=== PATIENT | female | born 1985 | race African-American/Black ===

== ENCOUNTER 2017-04-04 13:40 | Emergency (ER) | payer SELFPAY ==
[~2017-04-04] VITALS: Ht 160 cm; Wt 120.0 kg
[2017-04-04] MEDS ORDERED: LEVOTHYROXIN50 MCG PO (13:56)
[2017-04-04] MEDS ORDERED: MOTRIN800 MG PO (14:12)
[2017-04-04 14:20] VITALS: BP 110/66
== END 2017-04-04 14:20 | disposition home or self-care (01) | DRG 558 ==
LOC: ED 13:40
DX: M67.431 Ganglion, right wrist (principal); M25.531 Pain in right wrist

== ENCOUNTER 2020-01-11 | Emergency (ER) | payer SELFPAY ==
[~2020-01-11] MED LIST: LEVOTHYROXIN50 MCG PO; MOTRIN800 MG PO
[2020-01-11] MEDS ORDERED: GABAPENTIN300 M2 PO (08:45)
[2020-01-11] MEDS ORDERED: MOTRIN800 MG PO (08:45)
== END 2020-01-11 11:02 | disposition home or self-care (01) | DRG 556 ==
DX: M79.605 Pain in left leg (principal); E66.9 Obesity, unspecified; E03.9 Hypothyroidism, unspecified

== ENCOUNTER 2020-04-18 11:35 | Inpatient (IN) | payer MEDICAID ==
[~2020-04-18] VITALS: Ht 160 cm; Wt 190.3 kg
[~2020-04-18 11:35] MED LIST changes: +GABAPENTIN300 M2 PO
--- NOTE | 2020-04-18 11:50 | NUR ---
IMMEDIATELY TO ROOM 10 VIA WC, PLACED ON STAFF RADIATION THERAPIST. NOTIFIED OF PT.
--- NOTE | 2020-04-18 12:20 | NUR ---
PT ASSESSED. SITTING ON STRETCHER, GOWN AND MONITORS IN PLACE. PT REPORTS SHORT OF BREATH WORSE SINCE LAST NIGHT. POSITIVE FOR COVID 19 VIRUS. PT AO X 3 SKIN PINK WARM AND DRY. BREATH SOUNDS DIMINISHED BILAT. NO CARDIAC COMPLAINTS AT THIS TIME
--- NOTE | 2020-04-18 13:45 | NUR ---
CENTRAL LINE PLACED BY DR COOL. PT TOLERATED PROCEDURE WELL.
--- NOTE | 2020-04-18 14:45 | NUR ---
ANTIBIOTIC INFUSING. PT RESTING ON STRETCHER AWAITING RESULTS
[2020-04-18 14:51] LABS: HEMATOCRIT 37.3 % (37.0-47.0); HEMOGLOBIN 11.2 g/dl (12.0-16.0); IMMATURE GRANULOCYTES 0.3 % (0.0-5.0); MEAN CELL VOLUME 75.8 fL CALC (80.0-100.0); MEAN CORPUSCULAR HGB 22.8 pG CALC (26.0-32.0); NEUT# 4.34 thou/uL (2.00-7.15); RED BLOOD COUNT 4.92 mill/uL (4.20-5.60); RED CELL DISTRI WIDTH 17.1 % (11.5-15.5)
--- NOTE | 2020-04-18 15:24 | NUR ---
PT CONTINUES WAITING LAB RESULTS
[2020-04-18 15:30] LABS: C-REACTIVE PROTEIN 0.9 mg/dL (0-0.9); LIPASE 79 u/l (23-300)
--- NOTE | 2020-04-18 15:50 | NUR ---
PT GIVEN SANDWICH AND COLA. REPOSITIONED FOR COMFORT
[2020-04-18 15:57] LABS: ALBUMIN 3.6 g/dL (3.2-5.0); ALKALINE PHOSPHATASE 73 u/l (38-126); ANION GAP 11 (6-22 (CALC)); BILIRUBIN, TOTAL 0.4 mg/dL (0.0-1.4); BUN 8 mg/dL (7-17); BUN/CREATININE RATIO 10 (12-20 (CALC)); CARBON DIOXIDE 25 mmol/l (22-30); CHLORIDE 103 mmol/l (95-108); CREATININE 0.8 mg/dL (0.5-1.0); GFR > 60 ML/MIN (>=60 (CALC)); GFR FOR AFR.AMER. > 60 ML/MIN (>=60 (CALC)); POTASSIUM 4.6 mmol/l (3.5-5.1); SGOT/AST 34 u/l (14-36); SODIUM 134 mmol/l (137-146); TOTAL PROTEIN 7.2 g/dL (6.3-8.2)
--- NOTE | 2020-04-18 16:07 | NUR ---
SBAR PRINTED TO FLOOR
--- NOTE | 2020-04-18 16:29 | NUR ---
REPORT GIVEN TO JEROMY MORALES ICU
--- NOTE | 2020-04-18 16:45 | NUR ---
PT TRANSPORTED TO ICU VIA STRETCHER. O2 IN PLACE
--- NOTE | 2020-04-18 16:45 | NUR ---
PT ADMITTED FROM ER VIA STRETCHER. PT AMBULATED TO BSC. ALERT AND ORIENTED X4, MOVES ALL EXTREMITIES. DENIES PAIN OR DISCOMFORT AT THIS TIME, WILL CONTINUE TO MONITOR.
--- NOTE | 2020-04-18 18:00 | NUR ---
PT DINNER AT BEDSIDE, DENIES PAIN OR DISCOMFORT AT THIS TIME, CALL LIGHT WITHIN REACH, WILL CONTINUE TO MONITOR.
--- NOTE | 2020-04-18 19:58 | NUR ---
REPORT FROM JEROMY MORALES. PT SITTING UP IN BED WATCHING TV. NO APPARENT DISTRESS NOTED. PT DENIES ANY PAIN OR SOB. 02 VIA HIGHFLOW NC @5L/M. TRIPLE LUMEN RIGHT IJ, FLUSHED EASILY WITH BLOOD RETURN NOTED IN ALL THREE LUMENS. PT REPORTS PRODUCTIVE COUGH WITH CLEAR/YELLOW THICK SPUTUM. DISCUSSED POC. PT VERBALIZED UNDERSTANDING. URINE SAMPLE COLLECTED AND SENT TO LAB ORDERED. FRESH ICE WATER AND CRACKERS PROVIDED UPON REQUEST. NO OTHER WANTS OR NEEDS. CALL LIGHT WITHIN REACH. WILL CONTINUE TO MONITOR.
[2020-04-18 20:20] VITALS: BP 125/67
--- NOTE | 2020-04-18 22:47 | NUR ---
PT RESTING IN BED. NO APPARENT DISTRESS NOTED. MAINTAINING 98% ON 5L/M VIA NC. PT DENIES ANY PAIN OR SOB. CELL PHONE PLACED ON PUBLIC RELATIONS ACCOUNT SUPERVISOR. CALL LIGHT WITHIN REACH. WILL CONTINUE TO MONITOR.
[2020-04-19 00:06] VITALS: BP 135/81
--- NOTE | 2020-04-19 02:14 | NUR ---
PT RESTING IN BED WITH EYES CLOSED. NO APPARENT DISTRESS NOTED. RESPIRATIONS EVEN AND UNLABORED. 02 @5L/M VIA NC. CALL LIGHT WITHIN REACH. WILL CONTINUE TO MONITOR.
[2020-04-19 04:32] VITALS: BP 140/89
--- NOTE | 2020-04-19 04:34 | NUR ---
PT RESTING IN BED. NO APPARENT DISTRESS NOTED. PT WAKES EASILY. DENIES ANY PAIN OR SOB. LABS OBTAINED FROM RIGHT TRIPLE LUMEN IJ PER PROTOCOL. PT DENIES ANY CURRENT WANTS OR NEEDS. CALL LIGHT WITHIN REACH. WILL CONTINUE TO MONITOR.
[2020-04-19 06:09] LABS: ANION GAP 12 (6-22 (CALC)); BUN 10 mg/dL (7-17); BUN/CREATININE RATIO 13 (12-20 (CALC)); CARBON DIOXIDE 29 mmol/l (22-30); CHLORIDE 101 mmol/l (95-108); CREATININE 0.7 mg/dL (0.5-1.0); GFR > 60 ML/MIN (>=60 (CALC)); GFR FOR AFR.AMER. > 60 ML/MIN (>=60 (CALC)); MAGNESIUM 2.1 mg/dL (1.6-2.3); POTASSIUM 4.7 mmol/l (3.5-5.1); SODIUM 137 mmol/l (137-146)
--- NOTE | 2020-04-19 06:45 | NUR ---
RECIEVED REPORT FROM VAN PHILIP. ASSUMED PT CARE.
--- NOTE | 2020-04-19 07:55 | NUR ---
PT RESTING IN BED, A&OX3, ABLE TO MAKE NEEDS KNOWN, PT DENIES CP OR DISTRESS, SR ON TELEMETRY, HR 86. LS CLEAR/DIMINISHED, PT WITH SHALLOW RESPIRATIONS, ENCOURAGED/EDUCATED WITH DEEP BREATHING EXERCISES. SA02@96% ON 5LPM HIGH FLOW. RIJ/TL/SL, FLUSHED WITHOUT DIFFICULTY, NO S/S OF INFILTRATION/INFECTION NOTED AT SITE. ABDOMEN SOFT, DISTENDED. NON-TENDER, BSX4 ACTIVE. LBM 5-27-20. CALL LIGHT IN REACH. WILL MONITOR.
--- NOTE | 2020-04-19 09:32 | NUR ---
DR. CURRIE AT BEDSIDE FOR ASSESSMENT AND TO DISCUSS PLAN OF CARE. NEW ORDERS RECIEVED.
[2020-04-19 10:27] VITALS: BP 114/59
--- NOTE | 2020-04-19 11:14 | NUR ---
PT ASSISTED TO BSC, TOLERATED WELL. PT CONTINUES ON 02@5LPM VIA NC/HF. THEN BACK TO BED. CALL LIGHT IN REACH. WILL MONITOR.
[2020-04-19 14:15] VITALS: BP 117/67
--- NOTE | 2020-04-19 16:00 | NUR ---
PT RESTING IN BED, RESPIRATION SHALLOW, INTERMITTENT COUGH, PT PRODUCING THICK YELLOW MUCOUS, COUGHING WORSE WITH EXERTION. PT AGAIN ENCOURAGED/EDUCATED ON DEEP BREATHING EXERCISES. PT VERBALIZED UNDERSTANDING. CALL LIGHT IN REACH. WILL MONITOR.
--- NOTE | 2020-04-19 19:00 | NUR ---
RECEIVED REPORT. PT TALKING ON CELL PHONE AND WATCHING TV. WET PRODUCTIVE COUGH NOTED. N/C AT THIS TIME
[2020-04-19 21:00] VITALS: BP 111/66
--- NOTE | 2020-04-19 21:00 | NUR ---
PT REPORTED SHE IS UNABLE TO CLEAN SELF AFTER URINATION OR BM AT HOME. HAD LARGE LOOSE BM WHILE PARTIAL BATH GIVEN. NURSE CLEANED PERINEAL AREA-TOLERATED WELL. AFTER, PT ON PHONE WITH SISTED AND REQUESTED A WIK-EXTERNAL FEMALE CATH PT IS INCONTINENT OF URINE WITH COUGHING. APPLIED PER REQUEST AND INSTRUCTIONS GIVEN
--- NOTE | 2020-04-19 23:00 | NUR ---
BEDRESTING. WATCHING TV. NO DISTRESS NOTED
--- NOTE | 2020-04-19 23:50 | NUR ---
BEDRESTING. RESP EVEN AND NONLABORED. O2 REMAINS IN USE. PERIODIC COUGH. N/C AT THIS TIME
--- NOTE | 2020-04-19 23:51 | NUR ---
BEDRESTING. RESP EVEN AND NONLABORED. PERIODIC COUGH NOTED. N/C VOICED
[2020-04-20] VITALS (8 sets, daily range): BP systolic 110–135; BP diastolic 56–75
--- NOTE | 2020-04-20 01:00 | NUR ---
TV OFF. LIGHTS OUT. BEDRESTING. EYES CLOSED
--- NOTE | 2020-04-20 02:00 | NUR ---
REQUESTED MEDICATION FOR GAS. AFTER CHECKING MAR, TYLANOL ORDERED PRN FOR PAIN 1-3. WENT TO ROOM TO OFFER TYLENOL, PT BEDRESTING WITH EYES CLOSED. NO DISTRESS NOTED AT THIS TIME
--- NOTE | 2020-04-20 02:58 | NUR ---
BEDRESTING. NO DISTRESS NOTED AT THIS TIME
--- NOTE | 2020-04-20 04:45 | NUR ---
BEDRESTING. RESP EVEN AND NONLABORED. CONTINUES ON O2 RX. EYES CLOSED.
--- NOTE | 2020-04-20 05:42 | NUR ---
C/O GAS PAIN THROUGH THE NIGHT. ASKED IF MD HUNT ORDER MEDICATION FOR GAS. HAD INITIAL BM AT EARLY PART OF SHIFT. NO OTHER BM. WIK (EXTERNAL CATH) REMAINS IN PLACE. TLCL RIGHT IJ IN PLACE AND HL. BLOOD DRAWN AND ALL LINES FLUSHED
--- NOTE | 2020-04-20 05:44 | NUR ---
PT REMAINS ON AIRBORNE PRECAUTIONS IN ROOM [address]ER IN [address] NICKIE CLOSED
[2020-04-20 05:50] LABS: HEMATOCRIT 36.5 % (37.0-47.0); HEMOGLOBIN 10.8 g/dl (12.0-16.0); IMMATURE GRANULOCYTES 0.2 % (0.0-5.0); MEAN CELL VOLUME 75.9 fL CALC (80.0-100.0); MEAN CORPUSCULAR HGB 22.5 pG CALC (26.0-32.0); MEAN CORPUSCULAR HGB CONC 29.6 g/dL CAL (32.0-36.0); NEUT# 6.25 thou/uL (2.00-7.15); RED BLOOD COUNT 4.81 mill/uL (4.20-5.60); RED CELL DISTRI WIDTH 17.1 % (11.5-15.5)
[2020-04-20 06:34] LABS: ANION GAP 9 (6-22 (CALC)); BUN 12 mg/dL (7-17); BUN/CREATININE RATIO 14 (12-20 (CALC)); CARBON DIOXIDE 29 mmol/l (22-30); CHLORIDE 100 mmol/l (95-108); CREATININE 0.8 mg/dL (0.5-1.0); GFR > 60 ML/MIN (>=60 (CALC)); GFR FOR AFR.AMER. > 60 ML/MIN (>=60 (CALC)); POTASSIUM 4.5 mmol/l (3.5-5.1); SODIUM 134 mmol/l (137-146)
[2020-04-20 06:41] LABS: C-REACTIVE PROTEIN 2.2 mg/dL (0-0.9)
--- NOTE | 2020-04-20 06:41 | NUR ---
BEDRESTING. REPORT GIVEN TO ONCOMING SHIFT.
--- NOTE | 2020-04-20 08:00 | NUR ---
pt resting in bed with eyes closed; easily aroused; assessment completed at this time; pt alert and oriented; denies pain; no n/v noted; resp even and unlabored; lungs coarse throughout; skin color wnl; o2 per nc at 5L with o2 sat at 97%; loose productive cough noted; hr reg; strong pulses; no edema noted; st on monitor; abd soft/ distended with bs present; pt admits to bm last night; pt admits to flatus; TLC saline locked to RIJ; no redness or edema noted at site; plan of care/ meds explained; call light within reach; will continue to monitor
--- NOTE | 2020-04-20 09:00 | NUR ---
Dr Singh present at bedside to assess pt and discuss plan of care
--- NOTE | 2020-04-20 10:16 | NUR ---
pt resting in bed with eyes closed; no apparent distress noted; resp even and unlabored; st on monitor; iv intact; call light within reach; will continue to monitor
--- NOTE | 2020-04-20 10:25 | NUR ---
meds explained and administered; temp 100.1; pt denies needs/ discomfort; iv intact; call light within reach; will continue to monitor
--- NOTE | 2020-04-20 12:11 | NUR ---
awake in bed eating lunch; no apparent distress noted; resp even and unlabored; o2 per nc; o2 sat 100%; iv intact and patent; no redness or edema noted at site; st on monitor; purewick intact; call light within reach; will continue to monitor
--- NOTE | 2020-04-20 14:04 | NUR ---
resting in bed with eyes closed; no apparent distress noted; st on monitor; iv intact; o2 per nc; call light within reach; will continue to monitor
--- NOTE | 2020-04-20 15:51 | NUR ---
awake in bed; no apparent distress noted; pt offers no complaints; iv intact; sr on monitor; purewick intact and patent; o2 per nc; no resp difficulty noted; pt inquiring about transfer to [facility]; pt informed if condition worsens, MD may want to transfer; no orders to transfer at this time; will continue to monitor
--- NOTE | 2020-04-20 16:25 | NUR ---
gretchen carey provided as per request
--- NOTE | 2020-04-20 18:11 | NUR ---
awake in bed; offers no complaints; o2 titrated to 4L NC; o2 sat maintained at 100%; pt admits to feeling better; central line dressing changed d/t lifting; purewick changed at this time; pt request salad; dietary notified; call light within reach
--- NOTE | 2020-04-20 20:00 | NUR ---
BEDRESTING. DOZING AND WATCHING TV. STATES SHE CANNOT EAT THE SALAD IT MAKES HER COUGH. CONTINUES TO DRINK PLENTY OF FLUIDS-TOLERATING WELL. STATES FEELS MUCH BETTER TODAY THAN YESTERDAY. O2 IS 1L/MIN LESS TODAY THAN YESTERDAY AND O2 SAT REMAINS 98-100%. REPORTS HAD FEVER THIS AFTERNOON BUT IT BROKE AND AFTER SHE FEELS LIKE A NEW PERSON. HAS PERIODIC PRODUCTIVE COUGH. PUREWICK REMAINS IN USE (PER PATIENT'S REQUEST). CONTINUES ON AIRBORNE PRECAUTIONS WITH AIR SCRUBBER IN ROOM. TLCL IN PLACE AND HL
--- NOTE | 2020-04-20 20:10 | NUR ---
Patient is screened for rehab needs and there appear to be no needs at this time. We will continue to screen through interdisciplinary rounds as needs may arise
--- NOTE | 2020-04-20 22:00 | NUR ---
BEDRESTING. DOZING AT INTERVALS. N/C AT THIS TIME
[2020-04-21] VITALS (9 sets, daily range): BP systolic 109–152; BP diastolic 55–86
--- NOTE | 2020-04-21 | NUR ---
UP TO BSC WHERE BED BATH GIVEN AND LINEN CHANGED-TOLERATED WELL. COUGHING WITH SLIGHT EXERTION
--- NOTE | 2020-04-21 02:00 | NUR ---
BEDRESTING. RESP EVEN AND NONLABORED. NO DISTRESS NOTED AT THIS TIME
--- NOTE | 2020-04-21 04:00 | NUR ---
BEDRESTING. EYES CLOSED. RESP EVEN AND NONLABORED. NO DISTRESS NOTED
--- NOTE | 2020-04-21 07:35 | NUR ---
pt resting in bed with eyes closed; easily aroused; no apparent distress noted; pt offers no complaints; assessment completed at this time; pt alert and oriented; denies pain/ discomfort; no n/v noted; resp even and unlabored; sob with exertion noted; lungs coarse; skin color wnl; o2 titrated from 4L to 3L; o2 sart maintained at 99%; cough noted; hr reg; pulses present; no edema noted; abd soft/ distended with bs present; no bm noted per insurance underwriter; purewick catheter intact with clear lily urine noted; TLC to RIJ flushed and patent; brisk bllod return from all lumens; dressing cdi; plan of care/ am meds explained; call light within reach; will continue to monitor
--- NOTE | 2020-04-21 08:00 | NUR ---
sr on monitor; no apparent distress noted; call light within reach
--- NOTE | 2020-04-21 09:14 | NUR ---
Dr Singh present at bedside to assess pt and discuss plan of care
--- NOTE | 2020-04-21 09:18 | NUR ---
am meds explained and administered; ot noted with menstrual cycle; pericare per staff; purewick remains intact; call light within reach; will continue to monitor
--- NOTE | 2020-04-21 10:12 | NUR ---
awake in bed; frequent harsh coughing noted; o2 per nc at 3L; sr on monitor; iv intact and patent; pt offers no complaints; call light within reach; will continue to monitor
--- NOTE | 2020-04-21 10:43 | NUR ---
pt assisted to bsc for bm; sob on exertion noted; o2 sat 96% on 3L NC; complete linen change for urinary incont; purewick replaced/ placed as per pt request; st on monitor; will continue to monitor
--- NOTE | 2020-04-21 12:00 | NUR ---
awake in bed eating lunch; no apparent distress noted; coughing noted; st on monitor; o2 per; purewick intact; call light within reach; will continue to monitor
--- NOTE | 2020-04-21 14:06 | NUR ---
resting in bed with eyes closed; easily aroused; offers no complaints; ice cream requested and provided; iv intact; st on monitor; purewick intact; o2 per nc; call light within reach; will continue to monitor
--- NOTE | 2020-04-21 15:31 | NUR ---
report called to med surg Derrick Leavitt RN
--- NOTE | 2020-04-21 15:50 | NUR ---
VERBAL ORDER RECEIVED FROM DR NEVAREZ TO TRANSFER TO [facility] WITHOUT TELEMETRY
--- NOTE | 2020-04-21 16:00 | NUR ---
pt awake in bed; no apparent distress noted; pt with complaints of purewick not working; fawad noted full; pt informed of pending transfer to med surg; will continue to monitor
--- NOTE | 2020-04-21 16:30 | NUR ---
pt assisted to side of bed; pericare per this video games storywriter; pt denies ability to perform pericare; pt admits to daughter helping her with pericare/ showering etc; iv intact; no redness or edema noted at site; sr on monitor; purewick removed for transfer; pt transferred to med surg [id number] via wc with portable o2 in stable condition; bedside update provided to ANDREW Pike; all belongings sent with pt
--- NOTE | 2020-04-21 16:35 | NUR ---
PT ARRIVED TO UNIT VIA WHEELCHAIR WITH ICU STAFF; ALERT AND ORIENTED AND IN STABLE CONDITION. C/O MILD LOWER ABDOMINAL DISCOMFORT. RESPIRATIONS EVEN AND UNLABORED ON OXYGEN 3L VIA NC. PT STOOD AND AMBULATED SHORT DISTANCE TO BED WITH STEADY GAIT. PURWIK CATHETER REPLACED AND CONNECTED TO CONTINOUS SUCTION. EMESIS BAG PROVIDED FOR SPUTUM. ORIENTED TO ROOM AND CALL LIGHT SYSTEM. PLAN OF CARE REVIEWED. PT ENCOURAGED TO VERBALIZE CONCERNS. STATES UNDERSTANDING. SAFETY MEASURES IN PLACE. CALL LIGHT WITHIN REACH.
--- NOTE | 2020-04-21 17:31 | NUR ---
PURWIK CATHETER NOT EFFECTIVE; PT ASSISTED TO BSC FOR VOID AND HYGIENE. EXTENSION OXYGEN TUBING ALLOWS PT TO REACH BSC; PT ENCOURAGED TO GET UP FOR BATHROOM WITH SUPERVISION.
--- NOTE | 2020-04-21 18:42 | NUR ---
TYLENOL GIVEN FOR LOWER ABDOMINAL CRAMPING WITH MENSRAL CYCLE. PT SITTING UP IN HIGH FOWLERS EATING DINNER AND TALKING ON CELL PHONE. CALL LIGHT WITHIN REACH. REMAINS ON AIRBORNE/CONTACT PRECAUTIONS FOR POSITIVE COVID RESULTS.
--- NOTE | 2020-04-21 20:10 | NUR ---
ASSESSMENT COMPLETED. PT. WITH SHALLOW BREATHING AND ENCOURAGED TO DEEP BREATHE. O2 INFUSING PER NC @3LITERS/MIN PER NC. PT. IS C/O MENSTRUAL CRAMPS AND WARM PACK PROVIDED. PURE WIC REAPPLIED PER PT'S REQUEST. ENCOURAGED TO GET OOB AND VOID IF SHE IS ABLE TO. RIJ TL INTACT AND SL. PT. WITH DRY COUGH NOTED. ENCOURAGED TO CALL FOR ANY NEEDS. CALL LIGHT IS IN REACH.
--- NOTE | 2020-04-21 23:20 | NUR ---
PT. O2 SPO2 100% ON 3LITERS/MIN; TITRATED DOWN TO 2LITERS/MIN AND SPO2 98%. PUREWIC CANSITER EMPTIED OF 600MLS OF BLOODY URINE PT. IS ON HER MENSTRUAL CYCLE. CLOTH PAD AND SAMPSON PAD CHANGED WELL. DENIES NEEDS. CALL LIGHT IS IN REACH. WILL CONTINUE TO MONITOR.
[2020-04-22 03:52] VITALS: BP 131/62
--- NOTE | 2020-04-22 03:55 | NUR ---
AM LABS OBTAINED; VSS; SPO2 99-100% ON 2LITERS/MIN AND O2 TITRATED DOWN TO 1LITER/MIN AND SPO2 REMAINS AT 99%. NO RESP. DISTRESS NOTED.
[2020-04-22 04:57] LABS: HEMATOCRIT 36.2 % (37.0-47.0); HEMOGLOBIN 10.9 g/dl (12.0-16.0); IMMATURE GRANULOCYTES 0.4 % (0.0-5.0); MEAN CELL VOLUME 75.7 fL CALC (80.0-100.0); MEAN CORPUSCULAR HGB 22.8 pG CALC (26.0-32.0); MEAN CORPUSCULAR HGB CONC 30.1 g/dL CAL (32.0-36.0); NEUT# 5.78 thou/uL (2.00-7.15); RED BLOOD COUNT 4.78 mill/uL (4.20-5.60)
--- NOTE | 2020-04-22 05:05 | NUR ---
SYNTHROID GIVEN AND FRESH WATER AND GATORADE PROVIDED. PUREWIC IN PLACE AND CHECKED PADS FOR INCONTINENCE AND NONE NOTED. CANISTER EMPTIED OF 500MLS OF BLOODY URINE. DENIES NEEDS. CALL LIGHT IS IN REACH. WILL CONTINUE TO MONITOR.
[2020-04-22 05:29] LABS: ALBUMIN 3.8 g/dL (3.2-5.0); ALKALINE PHOSPHATASE 67 u/l (38-126); ANION GAP 9 (6-22 (CALC)); BILIRUBIN, TOTAL 0.4 mg/dL (0.0-1.4); BUN 10 mg/dL (7-17); BUN/CREATININE RATIO 14 (12-20 (CALC)); C-REACTIVE PROTEIN 3.2 mg/dL (0-0.9); CARBON DIOXIDE 30 mmol/l (22-30); CHLORIDE 101 mmol/l (95-108); CREATININE 0.7 mg/dL (0.5-1.0); GFR > 60 ML/MIN (>=60 (CALC)); GFR FOR AFR.AMER. > 60 ML/MIN (>=60 (CALC)); POTASSIUM 4.5 mmol/l (3.5-5.1); SGOT/AST 38 u/l (14-36); SODIUM 135 mmol/l (137-146); TOTAL PROTEIN 7.2 g/dL (6.3-8.2)
[2020-04-22 07:56] VITALS: BP 112/59
--- NOTE | 2020-04-22 07:56 | NUR ---
REPORT RECEIVED FROM ANDREW MOE. PT RESTING IN BED SEMI FOWLERS; ALERT AND ORIENTED. C/O 10/10 LOWER ABDOMINAL CRAMPING RELATED TO MENSTRAL CYCLE; TYLENOL GIVEN AT THIS TIME. RESPIRATIONS EVEN AND UNLABORED ON OXYGEN 1L VIA NC; PT REPORT SOB AFTER COUGHING; PRODUCTIVE COUGH. TEMP 100.0. PURWIK CATHETER IN PLACE DRAINING BLODDY URINE DUE TO PERIOD. TRIPLE LUMEN RIGHT IJ APPEARS HEALHTY AND FLUSHES WITH GOOD BLOOD RETURN; DRESSING CDI AND DATED 04/20/20. FAN ON. AIRBORNE/CONTACT PRECAUTIONS. PLAN OF CARE REVIEWED. PT ENCOURAGED TO VERBALIZE CONCERNS. STATES UNDERSTANDING. SAFETY MEASURES IN PLACE. CALL LIGHT WITHIN REACH.
--- NOTE | 2020-04-22 09:00 | NUR ---
TYLENOL EFFECTIVE FOR CRAMPING AND TEMP DOWN TO 96.9. PT ATE MINIMAL BREAKFAST. DECLINED MILK PRODUCTS; WILL NOTIFY DIETARY. SET UP FOR ORAL CARE AND PT BRUSHED TEETH INDEPENDENTLY.
--- NOTE | 2020-04-22 10:02 | NUR ---
FIRST DOSE OF REMDESIVIR INFUSING INTO CENTRAL LINE; PT EDUCATED ON MEDICATION.
[2020-04-22 12:09] VITALS: BP 139/82
--- NOTE | 2020-04-22 13:00 | NUR ---
PT UP TO BSC FOR LOOSE MODERATE BOWEL MOVEMENT. ASSISTED BATH PROVIDED WITH BED LINEN CHANGE. NEW PURWIK IN PLACE. 1100ML OF URINE EMPTIED. EXERTIONAL SOB; NOW RESTING IN BED SEMI FOWLERS.
[2020-04-22 15:51] VITALS: BP 132/68
--- NOTE | 2020-04-22 15:55 | NUR ---
AFTER COUGHING AND BLOWING NOSE ON ROOM AIR PT SPO2 DECREASED TO 84%; REAPPLIED 1L. TITRATED O2 UP TO 2L FOR RECOVERY; PT CURRENLTY 92% ON 2L. VSS. REQUESTING A 3RD PITCHER OF ICE WATER. AN ADDITIONAL 800ML OF URINE EMPTIED FROM PURWIK CATHETER.
--- NOTE | 2020-04-22 17:59 | NUR ---
DR. NEVAREZ AT BEDSIDE.
--- NOTE | 2020-04-22 20:30 | NUR ---
ASSESSMENT COMPLETED. NO DISTRESS NOTED;O2 INFUSING PER NC @2LITERS/MIN. PT. WITH A COUGH NOTED. PUREWIC REPOSITIONED AND PT. HAS A LARGE INCONTINENCE AND MENSTRUAL BLOOD MIXED; SAMPSON CARE PROVIDED AND NEW GOWN,CHUCKS, AND DRAW SHEET PROVIDED. FRESH WATER PROVIDED. DENIES NEEDS/PAIN. ENCOURAGED TO CALL FOR ANY NEEDS. CALL LIGHT IS IN REACH.
[2020-04-22 20:33] VITALS: BP 110/81
--- NOTE | 2020-04-23 | NUR ---
PT. RESTING IN BED AND C/O DRY NOSE; HUMIDIFIER APPLIED TO O2. PT. IS INCONTINENT OF URINE AND MENSES; SAMPSON CARE GIVEN AND NEW PURE WIC APPLIED WELL NEW CHUCKS. FRESH WATER PROVIDED. ENCOURAGED TO CALL FOR ANY NEEDS. CALL LIGHT IS IN REACH.
--- NOTE | 2020-04-23 01:50 | NUR ---
PT. HAS BEEN ON RA FOR APPROXIMATELY 1 1/2 HRS. PT. REMOVED IT HERSELF AND SPO2 CHECKED AND IS 94%. O2 WITHIN REACH IN CASE OF SOB. TISSUES PROVIDED. CALL LIGHT IS IN REACH.
[2020-04-23 04:24] VITALS: BP 142/73
--- NOTE | 2020-04-23 04:30 | NUR ---
PT. CHECKED FOR INCONTINENCE AND NONE NOTED. PUREWIC IN PLACE AND CANISTER EMPTIED AND RESTARTED. JUICE PROVIDED. PT. PLACED HER O2 BACK ON AND IS AT 1LITER/MIN PER NC AND SPO2 95-96%. VSS. ENCOURAGED TO CALL FOR ANY NEEDS. CALL LIGHT IS IN REACH.
--- NOTE | 2020-04-23 07:20 | NUR ---
REPORT RECEIVED FROM ANDREW MOE. PT RESTING IN SEMI FOWLERS; ALERT AND ORIENTED. DENIES PAIN; REPORTS MILD CRAMPING TO ABDOMEN, BUT DECLINES ANY MEDICATION. RESPIRATIONS EVEN AND SHALLOW ON ROOM AIR; PATIENT REMOVED OXYGEN; SPO2 90-92% ON ROOM AIR; 2L VIA NC REAPPLIED TO KEEP O2 SAT ABOVE 92%. CENTRAL CATHETER APPEARS HEALTHY; DRESSING CDI. PURWIK DRAINGE URINE IN LARGE AMOUNTS. SAFETY MEASURES IN PLACE. CALL LIGHT WITHIN REACH.
[2020-04-23 07:58] VITALS: BP 123/65
[2020-04-23 11:40] VITALS: BP 138/61
--- NOTE | 2020-04-23 12:01 | NUR ---
PT C/O CHEST PAIN; RT AT BEDSIDE FOR EKG. CP HAS NOW SUBSIDED AND PT IS CURRENTLY IN THE SHOWER; [place] MACHINE OPERATOR ASSISTING. OXYGEN IN PLACE 2L VIA NC.
--- NOTE | 2020-04-23 12:26 | NUR ---
PT REPOSITIONED INTO BED; SOB WITH EXERTION; SPO2 IN LOW 80'S. TITRATED UP TO 2L AND O2 INCREASING; CURRENTLY 91%. PT SLOWLY RECOVERING WITH REST. PT REPORTS THAT THE CHEST PAIN HAS SUBSIDED AND THAT "IT WAS JUST GAS." REQUESTS A CARONATED BEVERAGE TO HELP HER BELCH. NEW PURWIK CATHETER PLACED. WILL CONTINUE TO MONITOR.
--- NOTE | 2020-04-23 12:59 | NUR ---
PO PROTONIX GIVEN AND PT EDUCATED ON NEW MED; COKE GIVEN PER REQUEST. TITRATED OXYGEN UP TO 3L AFTER SATURATIONS NOT INCREASING POST EXERTION. AFTER 15 MINUTES SPO2 IS 92-93% ON THE 3L; PT DOES DESAT TO 89-90% WHILE EATING LUNCH. ENCOURGED TO DEEP BREATHE. ZITHROMAX INFUSING AT THIS TIME. CALL LIGHT WITHIN REACH.
[2020-04-23 15:20] VITALS: BP 107/67
[2020-04-23 18:56] VITALS: BP 123/58
--- NOTE | 2020-04-23 19:50 | NUR ---
ASSESSMENT COMPLETED; NO DISTRESS NOTED; DENIES NEEDS/PAIN. O2 TITRATED BACK DOWN TO 2LITERS/MIN ON NC. PUREWIC IN PLACE. FRESH WATER AND SNACK PROVIDED. ENCOURAGED TO CALL FOR ANY NEEDS. CALL LIGHT IS IN REACH. WILL CONTINUE TO MONITOR.
--- NOTE | 2020-04-23 23:05 | NUR ---
CLEANED OF A LARGE INCONTINENCE OF URINE AND SAMPSON CARE GIVEN. NEW CHUCKS APPLIED AND PUREWIC RE-ARRANGED. SPO2 95% ON 3LITERS/MIN AND TITRATED DOWN TO 2LITERS/MIN AND SPO2 94%. DENIES ANY FURTHER NEEDS. CALL LIGHT IS IN REACH.
[2020-04-24 04:17] VITALS: BP 118/68
--- NOTE | 2020-04-24 04:20 | NUR ---
AM LABS DRAWN VIA RIJ TL AND FLUSHED PER PROTOCOL. PADS UNDERNEATH PT. CHANGED AND SAMPSON CARE PROVIDED. PURE WIC IN PLACE AND CANISTER EMPTIED. VSS. C/O BACK PAIN AND MEDICATED WITH ORDERED PRN TYLENOL; WILL REASSESS. O2 90% ON 2 LITERS/MIN AND INCREASED TO 2.5LITERS/MIN AND SPO2 UP TO 92%.
[2020-04-24 05:00] LABS: HEMATOCRIT 38.1 % (37.0-47.0); HEMOGLOBIN 11.1 g/dl (12.0-16.0); IMMATURE GRANULOCYTES 0.9 % (0.0-5.0); MEAN CELL VOLUME 76.5 fL CALC (80.0-100.0); MEAN CORPUSCULAR HGB 22.3 pG CALC (26.0-32.0); MEAN CORPUSCULAR HGB CONC 29.1 g/dL CAL (32.0-36.0); NEUT# 5.66 thou/uL (2.00-7.15); RED BLOOD COUNT 4.98 mill/uL (4.20-5.60); RED CELL DISTRI WIDTH 16.6 % (11.5-15.5)
[2020-04-24 05:39] LABS: ALBUMIN 3.9 g/dL (3.2-5.0); ALKALINE PHOSPHATASE 62 u/l (38-126); ANION GAP 9 (6-22 (CALC)); BILIRUBIN, TOTAL 0.4 mg/dL (0.0-1.4); BUN 14 mg/dL (7-17); BUN/CREATININE RATIO 17 (12-20 (CALC)); C-REACTIVE PROTEIN 2.9 mg/dL (0-0.9); CARBON DIOXIDE 31 mmol/l (22-30); CHLORIDE 99 mmol/l (95-108); CREATININE 0.8 mg/dL (0.5-1.0); GFR > 60 ML/MIN (>=60 (CALC)); GFR FOR AFR.AMER. > 60 ML/MIN (>=60 (CALC)); POTASSIUM 4.6 mmol/l (3.5-5.1); SGOT/AST 31 u/l (14-36); SODIUM 134 mmol/l (137-146); TOTAL PROTEIN 7.2 g/dL (6.3-8.2)
[2020-04-24 07:40] VITALS: BP 103/59
--- NOTE | 2020-04-24 07:40 | NUR ---
PT SITTING IN BED. A&O X3. O2 VIA NC IN PLACE. PUREWICK IN PLACE, BLOODY DUE TO MENSTRUAL CYCLE. TRACE EDEMA NOTED TO BILATERAL ANKLES. NO NEEDS AT THIS TIME. ASSESSMENT COMPLETED. DISCUSSED POC. CALL LIGHT IN REACH. CONTINUE TO MONITOR.
--- NOTE | 2020-04-24 14:31 | NUR ---
ASSISTED PT TO RECLINER. NO NEEDS OR DISTRESS AT THIS TIME. CALL LIGHT IN REACH. CONTINUE TO MONITOR
[2020-04-24 15:39] VITALS: BP 115/65
--- NOTE | 2020-04-24 17:46 | NUR ---
PT SITTING IN RECLINER EATING SUPPER. NO DISTRESS OR NEEDS AT THIS TIME. CALL LIGHT IN REACH. CONTINUE TO MONITOR.
[2020-04-24 19:00] VITALS: BP 113/67
--- NOTE | 2020-04-24 21:51 | NUR ---
PT ORDERED WINGS AND A 2L COKE FROM [facility]. PT MEDICATED ORDERS PROVIDE. NO S/O DISTRESS NOTED. ASSESSMENT COMPLETED ALSO AT THIS TIME. PT IS ABLE TO ROLL AND SELF BOOST IN THE BED. PUREWICK WAS IN PLACE. I DISCUSSED THE IMPORTANCE OF PT GETTING UP AND MOVING AROUND TO EXERCISE HER LUNGS. SHE VERBALIZED UNDERSTANDING. BSC PROVIDED NEXT TO THE BED AND PT ENCOURAGED TO CALL IF SHE NEEDS OUR ASSISTANCE GETTING UP TO BSC. PT STATED THAT SHE UNDERSTOOD AND THOUGHT SHE WOULD BE ABLE TO DO THIS HERSELF. PT REPORTED STRESS INCONTINENCE WHEN COUGHING, I PROVIDED A PAD FOR MILD INCONTINENCE, BUT DISCUSSED THE USAGE OF BSC FOR URINATING, PT AGREED.
--- NOTE | 2020-04-25 00:30 | NUR ---
V/S ASSESSED, NO S/O DISTRESS NOTED.
[2020-04-25 03:35] VITALS: BP 116/66
--- NOTE | 2020-04-25 05:36 | NUR ---
PT MEDICATED ORDERS PROVIDE. IV FLUSHED/PATENT 3LUMENS
[2020-04-25 08:29] VITALS: BP 104/54
--- NOTE | 2020-04-25 08:29 | NUR ---
PT SITTING IN BED EATING BREAKFAST, A&O X3. O2 VIA NC @2.[address] PT ENCOURAGED TO GET OUT OF BED THROUGHOUT THE DAY, PT AGREED. NO OTHER NEEDS AT THIS TIME. ASSESSMENT COMPLETED. DISCUSSED POC. CALL LIGHT IN REACH. CONTINUE TO MONITOR.
--- NOTE | 2020-04-25 14:02 | NUR ---
PT SITTING IN RECLINER. NO DISTRESS OR NEEDS AT THIS TIME. CALL LIGHT IN REACH. CONTINUE TO MONITOR.
[2020-04-25 15:57] VITALS: BP 116/61
--- NOTE | 2020-04-25 18:10 | NUR ---
PT SITTING IN BED EATING SUPPER. NO DISTRESS OR NEEDS AT THIS TIME. CALL LIGHT IN REACH. CONTINUE TO MONITOR.
[2020-04-25 19:02] VITALS: BP 133/58
--- NOTE | 2020-04-25 23:07 | NUR ---
PT IN BED WITH EYES OPEN. ABLE TO VERBALIZE NEEDS. SKIN WARM TO TOUCH. MEDICATIONS GIVEN AND TOLERATED WELL. OXYGEN THERAPY IN PLACE WITH OCCASSIONAL SOB ON EXERTION. CONTINENT OF B/B AND AMBULATING TO BATHROOM WITH NO ASSIST NEEDED. ON LOVENOX THERAPY WITH NO S/S OF BLEEDING OR HEMORRHAGE. WILL CONTINUE TO OBSERVE. CALL LIGHT WITHIN REACH AND BED IN LOWEST POSITION.
[2020-04-26 04:10] VITALS: BP 106/59
[2020-04-26 05:17] LABS: HEMOGLOBIN 10.4 g/dl (12.0-16.0); IMMATURE GRANULOCYTES 1.3 % (0.0-5.0); MEAN CELL VOLUME 77.3 fL CALC (80.0-100.0); MEAN CORPUSCULAR HGB 22.3 pG CALC (26.0-32.0); MEAN CORPUSCULAR HGB CONC 28.9 g/dL CAL (32.0-36.0); NEUT# 7.71 thou/uL (2.00-7.15); RED BLOOD COUNT 4.66 mill/uL (4.20-5.60); RED CELL DISTRI WIDTH 16.5 % (11.5-15.5)
[2020-04-26 05:35] LABS: ALBUMIN 3.5 g/dL (3.2-5.0); ALKALINE PHOSPHATASE 58 u/l (38-126); ANION GAP 9 (6-22 (CALC)); BILIRUBIN, TOTAL 0.3 mg/dL (0.0-1.4); BUN 19 mg/dL (7-17); BUN/CREATININE RATIO 25 (12-20 (CALC)); C-REACTIVE PROTEIN 1.3 mg/dL (0-0.9); CARBON DIOXIDE 29 mmol/l (22-30); CHLORIDE 103 mmol/l (95-108); CREATININE 0.8 mg/dL (0.5-1.0); GFR > 60 ML/MIN (>=60 (CALC)); GFR FOR AFR.AMER. > 60 ML/MIN (>=60 (CALC)); POTASSIUM 4.1 mmol/l (3.5-5.1); SGOT/AST 23 u/l (14-36); SODIUM 136 mmol/l (137-146); TOTAL PROTEIN 6.7 g/dL (6.3-8.2)
--- NOTE | 2020-04-26 07:18 | NUR ---
Pt is alert and oriented and able to make needs known. Skin warm to touch. rested well during the night. dressing change completed to IJ site and pt tolerated well.. Tolerating fluids well. call light within reach and bed in lowest position. will continue to observe.
--- NOTE | 2020-04-26 07:40 | NUR ---
ASSESSMENT IS COMPLETED: IV SITE IS FREE FROM REDNESS OR EDEMA. HR IS REG,PULSES ARE STRONG X4, ABD IS SOFT WITH ACTIVE BS. BREATH SOUNDS ARE CLEAR, DIMINSHED AND WHEEZE, O2 @ 2.5 LITERS WITH NC. PUFFY ON LEFT FOOT. CONTINUE TO OBSERVE AND MONITOR.
[2020-04-26 09:20] VITALS: BP 115/56
--- NOTE | 2020-04-26 12:00 | NUR ---
PT HAS BEEN RELAXING IN BED WITH NO DISTRESS NOTED. IV SITE IS FREE FROM REDNESS OR EDEMA.
[2020-04-26 15:00] VITALS: BP 78/68
--- NOTE | 2020-04-26 15:30 | NUR ---
PT GET SHORT WINDED AFTER AMBULATING OUT OF THE BATHROOM.C/O BEING DIZZY WHEN ATTEMPTING TO WIPE SELF. STAFF ASSISTED. CHECKED O2 SAT IS 95% ON 1 LITER. CONTINUE TO REDUCE TO CHECK SATURATION LEVEL.
[2020-04-26 16:54] VITALS: BP 107/68
--- NOTE | 2020-04-26 16:54 | NUR ---
RECHECEKD BP AND O2 LEVEL IS 107/68 AND 95% ON 0.5L NC
[2020-04-26 19:00] VITALS: BP 117/77
--- NOTE | 2020-04-26 20:12 | NUR ---
pt in bed with eyes open and able to verbalize needs. no respiratory distress noted. food and fluids given and tolerated well. will continue to observe.
[2020-04-27 04:30] VITALS: BP 113/62
--- NOTE | 2020-04-27 07:20 | NUR ---
REPORT RECEIVED FROM ANDREW CROUCH. PT RESTING SEMI FOWLERS WITH NO SIGNS OF DISTRESS AND EYES CLOSED.
--- NOTE | 2020-04-27 07:27 | NUR ---
PT IS ALERT AND ORIENTED AND ABLE TO VERBALIZE NEEDS. UP TO BSC. CONTINENT OF B/B. COMPLAINED OF SOB DURING THE NIGHT ANDF O2 SAT 96% ON 1LNC. EXPIRATORY WHEEZE NOTED IN RIGTH UPPER LUNGS. PT EDUCATED TO SIT UP HIGHER IN BED TO FACILITATE BREATHING. FLUIDS GIVEN AND TOLERATE DWELL. WILL CONTINUE TO OBSERVE.
[2020-04-27 08:21] VITALS: BP 112/58
--- NOTE | 2020-04-27 08:25 | NUR ---
PT AMBULATED TO BATHROOM INDEPENDENTLY ON ROOM AIR AND REPOSITIONED SELF BACK INTO BED. PT REAPPLIED OXYGEN HERSELF AT 0.5L VIA NC; SPO2 99%. VERY MILDY SOB. TITRATED OFF OF OXYGEN FOR NOW. PT SITTING UP BRUSHING TEETH AND EATING BREAKFAST. WILL CONTINUE TO MONITOR.
--- NOTE | 2020-04-27 09:50 | NUR ---
WALK TEST PERFORMED. AT REST IN BED SPO2 IS 100% ON ROOM AIR. PT AMBULATED DOWN HALLWAY AND BACK; SPO2 DECREASED TO 91% ON ROOM AIR WHILE COUGHING; WHEN PAUSING TO REST SPO2 INCREASED BACK UP TO 97%. PT EXPERIENCED SOME LIGHTHEADEDNESS DURING AMBULATION AND PROVIDED CHAIR TO SIT AND REST.
[2020-04-27] MEDS ORDERED: DECADRON2 MG PO ×2 (11:15)
--- NOTE | 2020-04-27 12:13 | NUR ---
DR. NEVAREZ AT BEDSIDE. WANTS TO KEEP HER ANOTHER NIGHT AND MONITOR SPO2 AND RESPIRATORY STATUS ON ROOM AIR. POSSIBLE DC TOMORROW.
[2020-04-27 14:55] VITALS: BP 104/56
--- NOTE | 2020-04-27 15:13 | NUR ---
PT RESTING IN BED SEMI FOWLERS. INDEPENDENT IN ROOM NOW AND MAINTAINING SPO2 GREATER THAN 92% ON ROOM AIR. NO REQUESTS OR CONCERNS AT THIS TIME. CALL LIGHT WITHIN REACH.
[2020-04-27 19:10] VITALS: BP 122/59
--- NOTE | 2020-04-27 19:57 | NUR ---
RECEIVED REPORT ON THIS PT AND PT IN BED WITH EYES OPEN. ABLE TO MAKE NEEDS KNOWN. NO RESPIRATORY DISTRESS NOTED. CALL LIGHT IS WITHIN REACH. WILL CONTINUE TO OBSERVE.
[2020-04-28 04:00] VITALS: BP 120/75
--- NOTE | 2020-04-28 07:08 | NUR ---
PT IN BED WITH EYES OPEN AND ABLE TO VERBALIZE NEEDS. EASILY AROUSED DURING THE NIGHT. MEDICATIONS GIVEN THIS AM AND TOLERATED WELL. RESPIRATION EVEN AND NON LABORED. ON ROOM AIR THROUGHOUT THE NIGHT AND O2 [id number]% ROOM AIR. CONTINENT OF B/B AND ABLE TO TRANSFER SELF TO TOILET. IJ FLUSHING WITH NO COMPLICATIONS NOTED. CALL LIGHT WITHIN REACH AND BED IN LOWEST POSITION.
[2020-04-28 07:33] VITALS: BP 95/57
--- NOTE | 2020-04-28 07:35 | NUR ---
REPORT RECEIVED FROM ANDREW CROUCH. PT RESTING IN BED SEMI FOWLERS WITH EYES CLOSED; AWAKENS SPONTANEOUSLY. ALERT AND ORIENTED. DENIES PAIN. RESPIRATIONS EVEN AND UNLABORED ON ROOM AIR. NO C/O SOB; SPO2 97%. REMAINS ON AIR[place]ORNE/CONTACT PRECAUTIONS FOR POSITIVE COVID RESULTS. BLOOD WORK OBTAINED FROM CENTRAL LINE AND SENT TO LAB. PLAN OF CARE REVIEWED. PT ENCOURAGED TO VERBALIZE CONCERNS. STATES UNDERSTANDING. SAFETY MEASRUES IN PLACE. CALL LIGHT WITHIN REACH.
[2020-04-28 07:56] LABS: HEMATOCRIT 35.5 % (37.0-47.0); HEMOGLOBIN 10.5 g/dl (12.0-16.0); IMMATURE GRANULOCYTES 2.2 % (0.0-5.0); MEAN CORPUSCULAR HGB 22.5 pG CALC (26.0-32.0); MEAN CORPUSCULAR HGB CONC 29.6 g/dL CAL (32.0-36.0); NEUT# 8.4 thou/uL (2.00-7.15); RED BLOOD COUNT 4.67 mill/uL (4.20-5.60); RED CELL DISTRI WIDTH 16.8 % (11.5-15.5)
[2020-04-28 08:58] LABS: ALBUMIN 3.7 g/dL (3.2-5.0); ALKALINE PHOSPHATASE 54 u/l (38-126); ANION GAP 9 (6-22 (CALC)); BILIRUBIN, TOTAL 0.3 mg/dL (0.0-1.4); BUN 18 mg/dL (7-17); BUN/CREATININE RATIO 23 (12-20 (CALC)); C-REACTIVE PROTEIN 0.8 mg/dL (0-0.9); CARBON DIOXIDE 29 mmol/l (22-30); CHLORIDE 102 mmol/l (95-108); CREATININE 0.8 mg/dL (0.5-1.0); GFR > 60 ML/MIN (>=60 (CALC)); GFR FOR AFR.AMER. > 60 ML/MIN (>=60 (CALC)); POTASSIUM 4.3 mmol/l (3.5-5.1); SGOT/AST 24 u/l (14-36); SODIUM 136 mmol/l (137-146); TOTAL PROTEIN 6.9 g/dL (6.3-8.2)
--- NOTE | 2020-04-28 12:15 | NUR ---
DR. NEVAREZ AT BEDSIDE TO DISCUSS DISCHARGE PLANS.
--- NOTE | 2020-04-28 12:57 | NUR ---
RIGHT IJ CENTRAL LINE DISCONTINUED; PT TOLERATED WELL. REQUESTING TO SHOWER BEFORE DISCHARGE.
--- NOTE | 2020-04-28 13:40 | NUR ---
Discharge instructions given. Patient verbalizes understanding of same. Discharged in stable condition via Wheelchair to HOME. Assisted to car; pt drove herself. All belongings sent with pt.
== END 2020-04-28 13:39 | disposition home or self-care (01) | DRG 177 ==
LOC: ED 11:35 → ED-I 15:53 → ED 16:08 → ED-I 16:09 → ICU 16:09 → MS2 04-21 16:26
PROVIDERS: Family Medicine; Internal Medicine; Nurse Practitioner Family; ADMIT Internal Medicine; ATTEND Internal Medicine
PROC: 05HM33Z Insertion of Infusion Device into Right Internal Jugular Vein, Percutaneous Approach (ICD-10-PCS; principal; 2020-04-18)
DX: U07.1 COVID-19 (principal); J12.89 Other viral pneumonia; J96.01 Acute respiratory failure with hypoxia; E03.9 Hypothyroidism, unspecified; E66.01 Morbid (severe) obesity due to excess calories; G47.30 Sleep apnea, unspecified
CPT/HCPCS: J1650

== ENCOUNTER 2020-05-15 20:16 | Emergency (ER) | payer MEDICAID ==
[~2020-05-15] VITALS: Ht 160 cm; Wt 195.0 kg
[~2020-05-15 20:16] MED LIST changes: +DECADRON2 MG PO
[2020-05-15 20:28] VITALS: BP 136/62
== END 2020-05-15 21:12 | disposition left against medical advice (07) ==
LOC: ED 20:16
DX: R10.12 Left upper quadrant pain (principal); E66.9 Obesity, unspecified

== ENCOUNTER 2020-09-15 17:44 | Emergency (ER) | payer MEDICAID ==
[~2020-09-15] VITALS: Ht 160 cm; Wt 150.0 kg
[2020-09-15 18:35] LABS: HEMATOCRIT 38.2 % (37.0-47.0); HEMOGLOBIN 11.5 g/dl (12.0-16.0); IMMATURE GRANULOCYTES 0.3 % (0.0-5.0); MEAN CORPUSCULAR HGB 22.6 pG CALC (26.0-32.0); MEAN CORPUSCULAR HGB CONC 30.1 g/dL CAL (32.0-36.0); NEUT# 6.47 thou/uL (2.00-7.15); RED BLOOD COUNT 5.09 mill/uL (4.20-5.60); RED CELL DISTRI WIDTH 17.2 % (11.5-15.5)
[2020-09-15 18:54] LABS: ALKALINE PHOSPHATASE 63 u/l (38-126); ANION GAP 10 (6-22 (CALC)); BILIRUBIN, TOTAL 0.3 mg/dL (0.0-1.4); BUN 17 mg/dL (7-17); BUN/CREATININE RATIO 19 (12-20 (CALC)); CARBON DIOXIDE 29 mmol/l (22-30); CHLORIDE 103 mmol/l (95-108); CREATININE 0.9 mg/dL (0.5-1.0); GFR > 60 ML/MIN (>=60 (CALC)); GFR FOR AFR.AMER. > 60 ML/MIN (>=60 (CALC)); POTASSIUM 3.5 mmol/l (3.5-5.1); SGOT/AST 23 u/l (14-36); SODIUM 138 mmol/l (137-146); TOTAL PROTEIN 7.5 g/dL (6.3-8.2)
[2020-09-15 21:00] VITALS: BP 111/55
== END 2020-09-15 21:00 | disposition home or self-care (01) ==
LOC: ED 17:44
DX: R63.1 Polydipsia (principal); E03.9 Hypothyroidism, unspecified; E66.01 Morbid (severe) obesity due to excess calories; Z86.19 Personal history of other infectious and parasitic diseases

== ENCOUNTER 2021-04-21 20:19 | Emergency (ER) | payer MEDICAID ==
[~2021-04-21] VITALS: Ht 160 cm; Wt 160.0 kg
[2021-04-21 20:50] VITALS: BP 105/55
[2021-04-21] MEDS ORDERED: FERROUS SULF325 M2 PO (20:54)
[2021-04-21] MEDS ORDERED: LEVOTHYROXIN125 MCG PO (20:54)
[2021-04-21] MEDS ORDERED: LIPITOR20 M1 PO (20:54)
[2021-04-21] MEDS ORDERED: CYCLOBENZAPR5 MG PO (20:55)
== END 2021-04-21 20:50 | disposition home or self-care (01) ==
LOC: ED 20:19
DX: L98.0 Pyogenic granuloma (principal); E66.9 Obesity, unspecified; E03.9 Hypothyroidism, unspecified

== ENCOUNTER 2023-01-12 12:59 | Emergency (ER) | payer OTHER ==
[~2023-01-12] VITALS: Ht 160 cm; Wt 190.5 kg
[~2023-01-12 12:59] MED LIST changes: +CYCLOBENZAPR5 MG PO; +FERROUS SULF325 M2 PO; +LEVOTHYROXIN125 MCG PO; +LIPITOR20 M1 PO
[2023-01-12] MEDS ORDERED: MEDDOSEPAK PO (16:48)
[2023-01-12 17:10] VITALS: BP 122/62
== END 2023-01-12 17:13 | disposition home or self-care (01) ==
LOC: ED 12:59
DX: J01.90 Acute sinusitis, unspecified (principal); E66.9 Obesity, unspecified; E03.9 Hypothyroidism, unspecified; E78.00 Pure hypercholesterolemia, unspecified

== ENCOUNTER 2023-02-03 08:03 | Emergency (ER) | payer OTHER ==
[2023-02-03] VITALS (14 sets, daily range): BP systolic 103–158; BP diastolic 63–94
[~2023-02-03] VITALS: Ht 162.6 cm; Wt 193.0 kg
[~2023-02-03 08:03] MED LIST changes: +MEDDOSEPAK PO
[2023-02-03] MEDS ORDERED: PERCOCET 5/325M1 TAB PO (08:48)
[2023-02-03 09:08] LABS: BASO% 0.4 % (0-3); HEMATOCRIT 39.1 % (37.0-47.0); HEMOGLOBIN 11.4 g/dl (12.0-16.0); IMMATURE GRANULOCYTES 0.1 % (0.0-5.0); LYMPH% 21.8 % (15-41); MEAN CELL VOLUME 75.2 fL CALC (80.0-100.0); MEAN CORPUSCULAR HGB 21.9 pG CALC (26.0-32.0); MEAN CORPUSCULAR HGB CONC 29.2 g/dL CAL (32.0-36.0); NEUT# 9.83 thou/uL (2.00-7.15); NEUT% 70.7 % (42-76); RED BLOOD COUNT 5.2 mill/uL (4.20-5.60); RED CELL DISTRI WIDTH 16.6 % (11.5-15.5)
[2023-02-03 09:11] LABS: URINE BILIRUBIN - DIPSTICK NEGATIVE (NEGATIVE); URINE BLOOD DIPSTICK NEGATIVE (NEGATIVE); URINE COLOR YELLOW; URINE GLUCOSE - DIPSTICK NEGATIVE (NEGATIVE); URINE KETONE NEGATIVE (NEGATIVE); URINE LEUK ESTERASE NEGATIVE (NEGATIVE); URINE PROTEIN - DIPSTICK NEGATIVE (NEG-TRACE); URINE SPECIFIC GRAVITY 1.025; URINE UROBILINOGEN - DIPSTICK 0.2 E.U./dL (0.2)
[2023-02-03 09:12] LABS: URINE NITRITE - DIPSTICK NEGATIVE (Negative)
[2023-02-03 09:19] LABS: ALBUMIN 4.4 g/dL (3.2-5.0); ALKALINE PHOSPHATASE 82 u/l (38-126); ANION GAP 13 (6-22 (CALC)); BILIRUBIN, TOTAL 0.4 mg/dL (0.02-1.3); BUN 17 mg/dL (7-17); BUN/CREATININE RATIO 17 (12-20 (CALC)); CARBON DIOXIDE 28 mmol/l (22-30); CHLORIDE 102 mmol/l (95-108); GFR FOR AFR.AMER. > 60 ML/MIN (>=60 (CALC)); GFR OTHER RACES > 60 ML/MIN (>=60 (CALC)); POTASSIUM 3.9 mmol/l (3.5-5.1); SGOT/AST 25 u/l (14-36); SODIUM 139 mmol/l (137-146); TOTAL PROTEIN 8.4 g/dL (6.3-8.2)
== END 2023-02-03 14:44 | disposition home or self-care (01) ==
LOC: ED 08:03
PROVIDERS: Family Medicine
DX: K59.00 Constipation, unspecified (principal); E03.9 Hypothyroidism, unspecified; E66.9 Obesity, unspecified; E78.00 Pure hypercholesterolemia, unspecified